=== PATIENT | male | born 1970 | race Caucasian/White ===

== ENCOUNTER 2018-01-29 16:28 | Emergency (ER) | payer MEDICAID ==
[~2018-01-29] VITALS: Ht 193 cm; Wt 120.5 kg
[2018-01-29 16:52] VITALS: BP 124/79
[2018-01-29] MEDS ORDERED: TETanus/Pertussis (Acell)/Diphther VAC/PF (Tdap-Adult) 0.5ml syringe IM ONE (17:00)
[2018-01-29] MEDS ORDERED: LIDOcaine 1.5% w/epinephrine 1:200,000 5ml ampul IJ ONE (17:00)
[2018-01-29] MEDS ORDERED: CEPH-572 PO (18:19)
== END 2018-01-29 18:46 | disposition home or self-care (01) ==
LOC: ER 16:28
DX: S81.811A Laceration without foreign body, right lower leg, initial encounter (principal); Z79.2 Long term (current) use of antibiotics; W45.8XXA Other foreign body or object entering through skin, initial encounter; Y93.89 Activity, other specified; Y92.89 Other specified places as the place of occurrence of the external cause; Y99.8 Other external cause status
CPT/HCPCS: 12002; 99283; A6255; A6446; A6449; J3490